=== PATIENT | male | born 2000 | race Caucasian/White ===

== ENCOUNTER 2024-05-04 20:05 | Emergency (ER) | payer BC | END 2024-05-04 21:17 | disposition home or self-care (01) | LOC: ERS 20:05 | DX: T18.128A Food in esophagus causing other injury, initial encounter (principal); F17.290 Nicotine dependence, other tobacco product, uncomplicated; W44.F3XA Food entering into or through a natural orifice, initial encounter | CPT/HCPCS: 71045 ==